=== PATIENT | male | born 1990 | race African-American/Black ===

== ENCOUNTER 2017-10-04 19:38 | Emergency (ER) | payer SELFPAY ==
--- NOTE | 2017-10-04 20:24 | ER Document Report ---
ED Fall - General Chief Complaint: Fall Injury Stated Complaint: FALL Time Seen by Provider: 10/04/17 20:20 Mode of Arrival: Ambulatory Information source: Patient Notes: Patient is a 27-year-old male who presents to the emergency department with complaint of right knee pain. Patient has a laceration to the right knee after patient reports that he fell onto it. Patient reports that he fell off of the second step of the ladder onto concrete surface landing on his right knee and left arm. Patient has an abrasion to the left forearm. Patient denies striking his head, denies any loss of consciousness. TRAVEL OUTSIDE OF THE [place] IN LAST 30 DAYS: No - Related data Allergies/Adverse Reactions: carbinoxamine [From Rondec] Allergy (Verified 10/04/17 19:39) cefaclor [From Ceclor] Allergy (Verified 10/04/17 19:39) clonidine Allergy (Verified 10/04/17 19:39) pseudoephedrine [From Rondec] Allergy (Verified 10/04/17 19:39) Sulfa (Sulfonamide Antibiotics) Allergy (Verified 10/04/17 19:40) sulfamethoxazole [From Septra] Allergy (Verified 10/04/17 19:39) trimethoprim [From Septra] Allergy (Verified 10/04/17 19:39) Past Medical History - General Information source: Patient - Social History Smoking Status: Never Smoker Chew tobacco use (# tins/day): No Frequency of alcohol use: Rare Drug Abuse: None Family History: Reviewed & Not Pertinent Patient has suicidal ideation: No Patient has homicidal ideation: No Pulmonary Medical History: Reports: Hx Asthma Renal/ Medical History: Denies: Hx Peritoneal Dialysis Surgical Hx: Negative Review of Systems - Review of Systems Constitutional: No symptoms reported EENT: No symptoms reported Cardiovascular: No symptoms reported Respiratory: No symptoms reported Gastrointestinal: No symptoms reported Genitourinary: No symptoms reported Male Genitourinary: No symptoms reported Musculoskeletal: See HPI Skin: No symptoms reported Hematologic/Lymphatic: No symptoms reported Neurological/Psychological: No symptoms reported Physical Exam - Vital signs Vitals: Temp Pulse Resp BP Pulse Ox 99.2 F 103 H 18 127/81 H 97 10/04/17 19:48 10/04/17 19:48 10/04/17 19:48 10/04/17 19:48 10/04/17 19:48 - Notes Notes: PHYSICAL EXAMINATION: GENERAL: Well-appearing, well-nourished and in no acute distress. HEAD: Atraumatic, normocephalic. EYES: Pupils equal round and reactive to light, extraocular movements intact, sclera anicteric, conjunctiva are normal. ENT: Nares patent, oropharynx clear without exudates. Moist mucous membranes. NECK: Normal range of motion, supple without lymphadenopathy LUNGS: Breath sounds clear to auscultation bilaterally and equal. No wheezes rales or rhonchi. HEART: Regular rate and rhythm without murmurs ABDOMEN: Soft, nontender, nondistended abdomen. No guarding, no rebound. No masses appreciated. Musculoskeletal: Normal range of motion, no pitting or edema. No cyanosis. NEUROLOGICAL: Cranial nerves grossly intact. Normal speech, normal gait. Normal sensory, motor exams PSYCH: Normal mood, normal affect. SKIN: Warm, Dry, normal turgor. Abrasion to left forearm, laceration to right knee. Course - Re-evaluation Re-evalutation: No fracture noted on radiology report. Patients laceration repaired after irrigation of 500ml normal saline. See procedure note. - Vital Signs Vital signs: Temp Pulse Resp BP Pulse Ox 98.0 F 80 16 125/78 100 10/04/17 22:01 10/04/17 22:01 10/04/17 22:01 10/04/17 22:01 10/04/17 22:01 Procedures - Laceration/Wound Repair right knee Wound length (cm): 3 Wound's Depth, Shape: Irregular Laceration pre-procedure: Sterile PPE donned Anesthetic type: 1% Lidocaine Volume Anesthetic (mLs): 6 Wound explored: Clean Irrigated w/ Saline (mLs): 500 Wound Repaired With: Sutures Suture Size/Type: 5:0, Prolene Number of Sutures: 8 Layer Closure?: No Discharge - Discharge Clinical Impression: Laceration, Abrasion Fall Qualifiers: Encounter type: initial encounter Qualified Code(s): W19.XXXA - Unspecified fall, initial encounter Condition: Stable Disposition: HOME, SELF-CARE Additional Instructions: Laceration Care Your laceration has been sutured to keep the skin edges aligned during healing. The time of suture removal depends on the nature and location of your cut. Please follow the care instructions the doctor has outlined for you and return for further care, according to the schedule you've been given. Keep the wound and dressing clean. Unless you were told otherwise, you may shower daily, blotting the wound dry with a clean, unused towel. At other times, If the dressing gets wet or blood soaked, remove it and blot the wound dry, then reapply a new dressing. Unless you were instructed otherwise, dressings should be changed at least daily. If any signs of infection occur (swelling, redness, increasing tenderness, red streaks, tender lumps in the armpit or groin above the laceration, or fever) , see the doctor immediately. Please return to the emergency department or your primary care provider in 8-10 days for suture removal. Please return earlier if you develop any signs of infection such as increased redness, swelling, foul-smelling drainage or fever. Prescriptions: Doxycycline Hyclate 100 mg PO BID #14 capsule
--- NOTE | 2017-10-04 21:11 | RADIOLOGY REPORT (SQ) ---
EXAM DESCRIPTION: KNEE RIGHT 4 VIEWS COMPLETED DATE/TIME: 10/04/2017 8:39 pm REASON FOR STUDY: fall, with laceration COMPARISON: None. NUMBER OF VIEWS: Four views. TECHNIQUE: AP, lateral, and both oblique radiographic images acquired of the right knee. LIMITATIONS: None. FINDINGS: MINERALIZATION: Normal. BONES: No acute fracture or dislocation. No worrisome bone lesions. JOINT: No effusion. SOFT TISSUES: Mild soft tissue swelling. No radio-opaque foreign body. OTHER: No other significant finding. IMPRESSION: No fracture. TECHNICAL DOCUMENTATION: JOB ID: [id number] [place]-72 2010 [employer]- All Rights Reserved Reading location - IP/workstation name: [email or web address]
[2017-10-04] MEDS ORDERED: LIDOCAINE 1% INJ-PF (10 MG/ML) 30 ML SDV INJ ONE (21:27)
[2017-10-04 22:02] VITALS: BP 125/78
[2017-10-04] MEDS ORDERED: DOXYCYCLINE HYCLATE 100 MG TABLET PO ONE (22:17)
[2017-10-04] MEDS ORDERED: HYDROCODONE/ACETAMINOPHEN 5-325 MG (6 TAB/ER DISP) PO PRN (22:17)
== END 2017-10-04 22:41 | disposition home or self-care (01) ==
LOC: ER 19:38
PROC: 0HQKXZZ Repair Right Lower Leg Skin, External Approach (ICD-10-PCS; principal; 2017-10-04)
DX: S81.011A Laceration without foreign body, right knee, initial encounter (principal); S50.812A Abrasion of left forearm, initial encounter; M25.561 Pain in right knee; W11.XXXA Fall on and from ladder, initial encounter; J45.909 Unspecified asthma, uncomplicated
CPT/HCPCS: 99283; 73564; 12002; J3490